=== PATIENT | female | born 1985 | race Caucasian/White ===

== ENCOUNTER 2020-12-25 05:20 | Inpatient (IN) | payer OTHER, SELFPAY ==
[2020-12-25] VITALS (188 sets, daily range): BP systolic 84–137; BP diastolic 37–92; PULSE 25–159; TEMP 36.3–36.6; O2SAT 79–100; BMI 36.4
--- NOTE | 2020-12-25 05:20 | LDADM ---
This patient, Lauren Martinez, was admitted to Labor/Delivery/Recovery 102 on 12/25/20 at 05:20. Plans for labor, pain management and were discussed with patient. Patient/family oriented to hospital policies and general routines including ID bracelet, bed and alarms, visiting hours, pain management, procedures, bathroom and other care routines, personal items, smoking policy, room service/diet and guest tray routines, infant security routines, and visiting hours. Patient/Family are encouraged to report perceived risks to care and to ask questions if they do not understand what they are told or what they should do. See OBIX for further documentation.
--- NOTE | 2020-12-25 05:45 | WPDANESEPP ---
Anes - Eval Pre Procedure Date/Time: 12/25/20 05:45 Pre Op Diagnosis: IOL Patient Data Age: 35 Gender: F Height: Weight: Allergies Allergy/AdvReac Type Severity Reaction Status Date / Time latex Allergy Unknown NOSE Verified 07/07/16 13:31 RUNNING, FACIAL BURNING AND FLUSH Home Medications Medication Instructions Recorded Confirmed Type Vitamin 12/23/20 History buprenorphine-naloxone 12/23/20 History Patient hx anesthesia problems: none Family hx anesthesia problems: none PMFSH Past Medical History Medical History Anemia History of drug abuse Overweight or obesity and not yet delivered Social History Social History Substance use: former Other substance usage details: buprenorphine Last use: 8 years ago Gender identity (if verbalized by the patient): Female Sexual Orientation (if Verbalized by the Patient): Straight or Heterosexual Spiritual care concerns: No Exam Day of Procedure 12/25/20 05:45 Patient weight: overweight Airway: Mallampati scale class II Neurological: alert and oriented
[2020-12-25 06:05] LABS: Basophils Absolute Auto 0.1 K/mm3 (0.0-0.1); Basophils Percent Auto 0.8 % (0.2-1.2); Eosinophils Absolute Auto 0.1 K/mm3 (0-0.3); Hematocrit 33.2 % (37.0-47.0); Hemoglobin 9.7 g/dL (12.0-15.0); Immature Granulocyte Absolute 0.16 K/mm3 (0.00-0.031); Immature Granulocyte Percent A 1.8 % (0-0.5); Lymphocytes Absolute Auto 1.79 K/mm3 (0.9-3.2); Lymphocytes Percent Auto 20.2 % (18.3-44.2); Mean Corpuscular HGB Conc 29.2 g/dl (32-36); Mean Corpuscular Hemoglobin 21.4 pg (26-34); Mean Corpuscular Volume 73.1 fl (80-100); Mean Platelet Volume 10.6 fl (7.4-10.4); Monocytes Percent Auto 10.9 % (2.6-8.5); Neutrophils Absolute Auto 5.8 K/mm3 (1.3-6.7); Neutrophils Percent Auto 65.3 % (45.5-73.1); Platelet Count Result 198 k/mm3 (150-375); Red Blood Count 4.54 M/mm3 (4.2-5.4); Red Cell Distribution Width 21.3 % (11.5-14.5); White Blood Count 8.9 K/mm3 (4.5-10.0)
[2020-12-25 06:41] LABS: Anisocytosis 1+ (NORMAL); Hypochromasia 1+ (NORMAL); Microcytosis 1+ (NORMAL); Platelet Estimate Adequate (Adequate)
[2020-12-25] MEDS: OXYTOCIN 30 UNITS/NS 500 ML 30 UNITS/500 ML BAG IV CONT (06:50)
[2020-12-25] MEDS: LACTATED RINGERS 1,000 ML 125 ML IV CONT (06:50)
--- NOTE | 2020-12-25 07:29 | WPDOBADMIT ---
Obstetrics - Admit Note Admission Note: record reviewed. No pertinent additions to the history and/or any subsequent changes in the physical findings that are not consistent with the expected course of the were found. IOL at 39 weeks, unable to AROM due to pt discomfort SVE 1-2/60/-2, will pplan early epidural Additions to the history and/or subsequent changes in the physical findings follow. None.
[2020-12-25 08:24] LABS: Rapid Plasma Reagin Non-Reactive (NonReactive)
--- NOTE | 2020-12-25 11:57 | PM.OBPNLAB ---
Pain Control Date/time seen: 12/25/20 11:57 SVE 1-2/70/-2, AROM small amount of clear odorless fluid, anticipate vaginal delivery
--- NOTE | 2020-12-25 21:43 | PM.OBPRVD ---
OB - Delivery Note Procedure Delivery date: 12/25/20 Procedure: vaginal delivery Intrapartal events: None Induction method: AROM and per pitocin protocol Delivery monitor: external FHT and external uterine Route of delivery: Laceration Description: Perineal - 1st Degree Delivery repair: vicryl Specimen: Yes Quantitative Blood Loss (ml): 75 Anesthesia type: Epidural Disposition: floor [place] Baby Date of : 12/25/20 Time of : 21:30 Weeks of gestation at delivery: 39 Infant gender: Male Weight (pounds): 8 Weight (ounces): 8 presentation: vertex position: Right Occiput Anterior Placenta delivery description: Spontaneous cord vessel description: 3 Vessels, Clamped/Cut and Delayed Cord Clamping score one minute: 9 score five minutes: 9 Narrative: mother and baby skin to skin in stable condition
[2020-12-25] MEDS: OXYTOCIN 30 UNITS/NS 500 ML 30 UNITS/500 ML BAG 125 UNITS IV CONT (22:05)
[2020-12-25] MEDS: IBUPROFEN 600 MG TABLET PO (22:06)
[2020-12-25] MEDS: WITCH HAZEL 40 PADS 1 PAD TOPICAL (22:06)
[2020-12-25] MEDS: BENZOCAINE 20% AER SPR (*SP) 56 GM CAN 1 SPRAY TOPICAL (22:06)
[2020-12-26] VITALS (12 sets, daily range): BP systolic 96–121; BP diastolic 39–81; PULSE 50–75; RESP 12–18; TEMP 36.3–36.8; O2SAT 97–100
--- NOTE | 2020-12-26 01:34 | OBPPTRN ---
Patient transferred to post room #276 via wheelchair with baby in bassinet. Support person present. Oriented to unit, room, information board, rooming in, admission packet and security measures. Patient verbalizes understanding.
[2020-12-26] MEDS: IBUPROFEN 600 MG TABLET PO ×2 (04:39→11:37)
[2020-12-26 05:21] LABS: Hematocrit 29.3 % (37.0-47.0); Hemoglobin 8.6 g/dL (12.0-15.0)
[2020-12-26] MEDS: POLYSACCHARIDE IRON COMPLEX 150 MG CAPSULE PO ×2 (08:56→15:59)
[2020-12-26] MEDS: DOCUSATE SODIUM 100 MG CAPSULE PO ×2 (08:56→15:59)
--- NOTE | 2020-12-26 10:06 | PM.OBPNVD ---
OB - PN: Subj Subjective Date/time seen: 12/26/20 10:06 Patient comments: no complaints baby status: doing well OB - PN: Obj Data Labs CBC & Chem 7: 12/26/20 04:35 Labs: Laboratory Results - last 24 hr 12/26/20 04:35 Hgb 8.6 L Hct 29.3 L OB - PN A/P Plan day: 1 Plan: routine care Comments: Pt desires discharge. Will await pedi recommendations. Time Spent With Patient Time: Total time spent is greater than 50% in coordination of care (as documented) at patient's floor/unit and/or counseling patient: Time with patient: less than 15 minutes Review of Systems Review of Systems: All systems reviewed & are unremarkable except as noted in HPI and below Exam Narrative: Exam Narrative: Fundus firm and vaginal flow controlled. No lower ext redness, warmth, or edema. Negative homans. Const: General: comfortable Chest: Breast/axilla inspection: normal inspection of the breasts Resp: Effort & Inspection: normal respiratory effort Cardio: Rate: regular rate GI: GI Palp: Yes Soft to palpation Psych: Appearance: grossly normal Affect: normal affect Attitude: cooperative Thought content: Yes Normal thought content present Judgement: Good judgement present (Psych)
--- NOTE | 2020-12-26 13:23 | WPDANLDPN2 ---
Anes-Prog Note L&D Date/Time: 12/26/20 13:23 Comfortable throughout: labor and delivery Neuraxial method: epidural Epidural/Spinal procedure site: clean & non-tender Neuro status: Neuro function grossly intact. Cardiovascular status: normal Respiratory status: normal Airway patency: baseline Mental status: baseline Post-Op hydration status: normal Vital Signs: Last Vital Signs Temp 36.7 C 12/26/20 08:00 Pulse 53 L 12/26/20 08:00 Resp 18 12/26/20 08:00 BP 96/57 L 12/26/20 08:00 Pulse Ox 98 12/26/20 08:00 Pain score (VAS): 0 I/O: Intake & Output 12/25/20 12/26/20 12/26/20 23:59 07:59 15:59 Intake Total 1500 Output Total 25 Balance 1500 -25 Post-procedural complaints: none Patient feedback: Patient satisfied with anesthetic care.
--- NOTE | 2020-12-26 20:10 | PC.NURSE ---
Patient viewed the discharge video Mother & Baby Care, The First Two Weeks online. Patient was given the opportunity and encouraged to ask questions. Patient verbalized understanding of information shared and has been given the mother/baby guide for home reference.
[2020-12-27 07:15] VITALS: BP 97/62; PULSE 50; RESP 16; TEMP 36.9; O2SAT 98
[2020-12-27] MEDS: POLYSACCHARIDE IRON COMPLEX 150 MG CAPSULE PO (07:24)
[2020-12-27] MEDS: DOCUSATE SODIUM 100 MG CAPSULE PO (07:24)
[2020-12-27] MEDS: IBUPROFEN 600 MG TABLET PO (07:24)
--- NOTE | 2020-12-27 09:30 | PM.OBPNVD ---
OB - PN: Subj Subjective Date/time seen: 12/27/20 09:30 Patient comments: no complaints baby status: doing well OB - PN: Obj Data Labs CBC & Chem 7: 12/26/20 04:35 OB - PN A/P Plan day: 2 Plan: routine care and discharge home (F/U in 4 weeks) Time Spent With Patient Time: Total time spent is greater than 50% in coordination of care (as documented) at patient's floor/unit and/or counseling patient: Time with patient: less than 15 minutes Review of Systems Review of Systems: All systems reviewed & are unremarkable except as noted in HPI and below Exam Narrative: Exam Narrative: Fundus firm and vaginal flow controlled. No lower ext redness, warmth, or edema. Negative homans. Const: General: comfortable Chest: Breast/axilla inspection: normal inspection of the breasts Resp: Effort & Inspection: normal respiratory effort Cardio: Rate: regular rate GI: GI Palp: Yes Soft to palpation Psych: Appearance: grossly normal Affect: normal affect Attitude: cooperative Thought content: Yes Normal thought content present Judgement: Good judgement present (Psych)
[2020-12-30 08:55] VITALS: BP 117/67; PULSE 52; RESP 20; TEMP 36.8; O2SAT 100
--- NOTE | 2021-01-18 12:41 | P.DS_ITS ---
DS: Admitting Diagnosis Admitting Diagnosis Admitting Diagnosis: Labor OB - DS: Summary OB Procedures : None OB Procedures Intrapartum: Spontaneous Vag Delivery OB Procedures: : None Time Spent with Patient Time attestation: Total time spent providing and/or coordinating discharge services: DS: Data Data Completed and Pending Completed studies during hospitalization: Pending at discharge 12/25/20 21:33 Surgical [PTH] Routine Discharge Plan Discharge Attending physician on discharge: Irish Morales Consulting providers: Irish Morales ; Joellen Thompson Discharging Clinician: Joellen Thompson Patient Disposition: Home, Self-Care Activity: pelvic rest Diet: as tolerated Discharge Instructions: Education: Mom and Baby Guide Given to: Mother Follow-Up: Call your delivering provider's office for an appointment to be seen in: Call for appointment Mom and baby should come to the [facility] for the follow-up appointment. Appointment Date/Time: December 30, 2020 at 9:00 am What to expect at your follow-up visit: Physical Assessment Call [phone] if you are unable to keep your appointment time. BREAST CARE: * Wear a snug supportive bra. * For engorgement discomfort: Bottle Feeding: * May apply ice packs EPISIOTOMY/PERINEAL CARE: * Until bleeding stops, use your trinh bottle after urinating * Change your pad frequently throughout the day * You may take sitz baths several times a day (fill your bathtub with warm water and soak for 20 minutes.) Do NOT bathe in the water * No tub baths until seen by your physician - You may shower ACTIVITY: * Rest as much as possible. * Do not exercise or lift anything heavier than your baby (such as laundry or other children.) * Avoid stairs or driving as much as possible. * Do not put anything into the vagina. No douching, tampons, or sexual activity until seen by physician. NOTIFY PHYSICIAN IF YOU HAVE ANY QUESTIONS OR IF ANY OF THE FOLLOWING SYMPTOMS OCCUR: * If your episiotomy or incision becomes red, swollen, or more painful than what you have experienced in the hospital. * If your vaginal bleeding becomes foul smelling. * If your vaginal bleeding becomes more heavy than a period or if your bleeding changes from pink to bright red. However, you may pass an occasional walnut- sized clot once or twice for the first week . * If you experience a sharp, shooting pain in you calves. * If you discover a hard, reddened area on your breast or if you experience flu- like symptoms. DIET: * Eat regular, well-balanced meals. * Drink plenty of fluids daily. If , drink to thirst. Stand Alone Forms: General Discharge Information Follow-up/Referrals: Irish Morales CNM [Certified Nurse Underwear Finisher] - Discharge Medications: New ibuprofen 600 mg Tablet 600 mg PO Q6H PRN (Reason: Cramping) Qty: 20 RF: 0 Continued Vitamin 200 mg BYMOUTH DAILY RF: 0 buprenorphine-naloxone 2 mg BYMOUTH DAILY RF: 0 Date of admission: 12/25/20 05:20 Primary Care Provider: PHYSICIAN,MANAGER OF DISTRIBUTION Admitting Provider: Eveline Stokes Attending physician on admission: Eveline Stokes Condition: Stable
== END 2020-12-27 12:10 | disposition home or self-care (01) | DRG 560 ==
LOC: ANHLDR 05:32 → ANHOB2 12-26 01:52
PROVIDERS: Advanced Practice Midwife; Admitting Provider Obstetrics & Gynecology; Visit Provider Obstetrics & Gynecology
DX: O99.02 Anemia complicating childbirth (principal); Z37.0 Single live birth; Z3A.39 39 weeks gestation of pregnancy; D64.9 Anemia, unspecified; O70.0 First degree perineal laceration during delivery; O99.214 Obesity complicating childbirth; E66.9 Obesity, unspecified
CPT/HCPCS: 36415; 85014; 85018; 85025; 86592; 86850; 86900; 86901; 88307; A9270; J2590; J2795; J7120

== ENCOUNTER 2022-01-26 01:42 | Day surgery (SDC) | payer OTHER, SELFPAY ==
--- NOTE | 2022-01-24 10:49 | PC.NURSE ---
Report to the Outpatient Waiting Room, entrance under the green pavilion located off [facility], at time 1000 on date 01/26/22. OR Time: 1200. - You and your visitor will be asked a series of questions to screen for COVID 19 for your protection. - Only one visitor is allowed at this time. - The patient visitor is requested to leave or wait in car when not with patient. - A mask is required within the hospital. Patients may have clear liquids (water, carbonated beverages, clear teas, apple juice) until 3 hours prior to surgery with a maximum of 20 ounces. - No food from midnight until time of surgery Take the following medications with a SIP of water the morning of surgery: NONE Medications to discontinue per physician: N/A Date to take last dose: N/A Please no make-up, nail swedish, hairspray, perfume, deodorant, or body powder the day of surgery. No jewelry (including any body piercings) or valuables the day of surgery, leave them at home. Please take a shower or bath the night before, or the morning of, surgery with an antibacterial soap. Wear comfortable, loose fitting clothing. - Jewelry must be removed prior to entering the operating room. Rings and piercings that are not removed may be cut off. - The hospital will not accept responsibility for valuables. - Please leave all valuables, including medications, at home the day of surgery. If you are going home after surgery, a licensed driver medic must drive you home. - NO public transportation without another adult. - We recommend that an adult stay with you for 24 hours following discharge. - We also recommend that you do not drive, make important decision, drink alcoholic beverages, or take any drugs that were not prescribed by your health care provider for at least 24 hours after your discharge time. Follow any additional instructions given to you from your surgeon. If you or anyone in your household have experienced Covid symptoms in the past week, please notify your surgeon or the nurse liaison at the phone number below for possible testing. Telephone instructions given to PT - TRINA GLASGOW and asked if any additional questions and then verbalized understanding. Patient advised to call surgeon office or pre surgery nurse liaison [phone] if any additional questions.
--- NOTE | 2022-01-25 15:05 | WPDANESEPPF ---
Anes - Initial Pre Proc Eval Procedure: Operation Date: 01/26/22 12:00 Proposed Procedures p Suction Dilation and Curettage - Eveline Stokes MD Date/Time: 01/25/22 15:05 Surgeon: Eveline Stokes MD Pre Op Diagnosis: missed Ab Patient Data Age: 36 Gender: F Height: 1.63 m Weight: Allergies Allergy/AdvReac Type Severity Reaction Status Date / Time latex Allergy Intermediate NOSE Verified 01/26/22 10:51 RUNNING, FACIAL BURNING AND FLUSH Home Medications Medication Instructions Recorded Confirmed Type ibuprofen 600 mg tablet 600 mg PO Q6H PRN Cramping #20 tabs 12/26/20 01/26/22 Rx buprenorphine 2 mg-naloxone 0.5 mg 1 tablet sublingual TID 01/24/22 01/26/22 History sublingual tablet Patient hx anesthesia problems: none Family hx anesthesia problems: none Results Review: All pre-operative results and documents have been reviewed as part of the pre-operative evaluation. [facility] Past Medical History Medical History (Updated 01/25/22 @ 15:05 by Roberto Hardy MD) Anemia Chronic narcotic use History of drug abuse Overweight or obesity and not yet delivered Social History Social History Smoking packs per day: 1 Smoking cigarettes per day: 20.0 Years smoked: 12 Smoking pack-years: 12.00 Smoking status: Former smoker Tobacco type: cigarettes and e-cigarettes/vaping Smoking end date: 07/10/15 Additional smoking assessment comments: CURRENTLY VAPING Alcohol intake: never Substance use: former Substance use type: prescription drug Other substance usage details: TREATMENT PROGRAM SINCE 2012 Last use: 8 years ago Living arrangements: with family Gender identity (if verbalized by the patient): Female Sexual Orientation (if Verbalized by the Patient): Straight or Heterosexual Spiritual care concerns: No Anes - Eval Final PreProcedure Day of Procedure 01/25/22 15:05 Patient weight: normal Heart: regular rate and rhythm Lungs: clear to auscultation and normal air movement Airway: Mallampati scale class II Neurological: alert and oriented Last oral intake: >/= 8 hours ASA classification: III Emergent: no Anesthetic plan: proceed Anesthesia type and monitoring: general GIVS Results Review: All pre-operative results and documents have been reviewed as part of the pre-operative evaluation. Informed Consent: The patient's anesthetic plan and its attendant risks and benefits were discussed with the patient/family/POA. Questions were solicited and answers provided to the satisfaction of the patient/family/POA.
[2022-01-26] VITALS (7 sets, daily range): BP systolic 106–119; BP diastolic 66–76; PULSE 49–71; RESP 15–16; TEMP 37.3; O2SAT 100
[2022-01-26] MEDS: ACETAMINOPHEN 500 MG TABLET 1000 MG PO (10:55)
--- NOTE | 2022-01-26 11:03 | PM.IMHP ---
H&P: HPI History of Present Illness Date/Time: 01/26/22 11:03 Chief Complaint: Missed miscarriage Narrative: this patient is a 36-year-old female with a missed miscarriage. Agreed to perform suction D&C. She understands the risks, benefits, and alternatives. She stands injuries may occur during the surgery the result in hospitalization, more surgery, severe illness. She understands there is risk of hemorrhage and infection. Review of Systems Review of Systems: All systems reviewed & are unremarkable except as noted in HPI and below Constitutional: Constitutional: Denies chills, Denies fatigue, Denies fever(s) and Denies weakness Eyes: Eyes: Denies blurry vision, Denies change in vision, Denies loss of peripheral vision, Denies loss of vision, Denies other visual disturbances and Denies eye pain ENT: Denies vertigo, Denies dizziness, Denies hearing loss, Denies mouth pain, Denies nasal obstruction, Denies neck mass and Denies neck pain Cardiovascular: Cardiovascular: Denies chest pain, Denies diaphoresis, Denies syncope, Denies leg edema and Denies dyspnea Respiratory: Respiratory: Denies chest congestion, Denies cough, Denies hemoptysis, Denies dyspnea and Denies wheezing Gastrointestinal: Gastrointestinal: Denies abdominal pain, Denies constipation, Denies diarrhea, Denies nausea and Denies vomiting Genitourinary: Genitourinary: Denies hematuria, Denies change in libido, Denies nocturia, Denies genital lesions, Denies flank pain and Denies urinary urgency Musculoskeletal: Musculoskeletal: Denies abnormal gait, Denies back pain, Denies myalgias, Denies arthralgias, Denies joint swelling, Denies muscle weakness and Denies neck pain Integumentary/Breasts: Skin/Breast: Denies swelling, Denies breast pain, Denies breast mass, Denies dry skin, Denies nipple discharge, Denies unusual bruising and Denies jaundice Neurologic: Denies Neuro-related abnormal movements, Denies Abnormal speech present, Denies abnormal gait, Denies behavioral changes, Denies confusion, Denies vertigo, Denies dizziness, Denies syncope, Denies loss of vision, Denies memory loss, Denies convulsions and Denies weakness Psychiatric: Psychiatric: Denies abnormal sleep pattern, Denies behavioral changes, Denies change in libido, Denies confusion, Denies depression, Denies anhedonia and Denies memory loss Endocrine: Endocrine: Reports no additional endocrine complaints, Denies change in libido and Denies fatigue Hematologic/Lymphatic: Hematologic/Lymphatic: Reports no additional hematologic/lymphatic complaints Allergic/Immunologic: Allergic/Immunologic: Reports no additional allergic/immunologic complaints and Denies wheezing PMFSH Past Medical History Medical History (Updated 01/26/22 @ 11:05 by Eveline Stokes MD) Anemia Chronic narcotic use History of drug abuse Overweight or obesity and not yet delivered Social History Social History Smoking packs per day: 1 Smoking cigarettes per day: 20.0 Years smoked: 12 Smoking pack-years: 12.00 Smoking status: Former smoker Tobacco type: cigarettes and e-cigarettes/vaping Smoking end date: 07/10/15 Additional smoking assessment comments: CURRENTLY VAPING Alcohol intake: never Substance use: former Substance use type: prescription drug Other substance usage details: TREATMENT PROGRAM SINCE 2012 Last use: 8 years ago Living arrangements: with family Gender identity (if verbalized by the patient): Female Sexual Orientation (if Verbalized by the Patient): Straight or Heterosexual Spiritual care concerns: No Meds Home Medications and Allergies Home Medications Medication Instructions Recorded Confirmed Type ibuprofen 600 mg tablet 600 mg PO Q6H PRN Cramping #20 tabs 12/26/20 01/26/22 Rx buprenorphine 2 mg-naloxone 0.5 mg 1 tablet sublingual TID 01/24/22 01/26/22 History sublingual tablet Allergies Al
--- NOTE | 2022-01-26 11:06 | WPDHPUPDATE1 ---
History and Physical Update Update Date/Time: 01/26/22 11:06 History and Physical has been reviewed, including an updated exam of the patient. There are NO changes in the patient's condition. Risks, benefits, and alternatives have been discussed and questions answered. Patient agrees to proceed with procedure.
[2022-01-26] MEDS: LACTATED RINGERS 1,000 ML 30 ML IV CONT (11:10)
--- NOTE | 2022-01-26 11:37 | SUR.PREOP ---
BECAUSE WE CARE BOOKLET GIVEN TO PT WITH INFORMATIONAL MATERIALS
--- NOTE | 2022-01-26 13:01 | P.OP_ITS ---
Procedure Note - Detailed Date of Procedure 01/26/22 Pre-op Diagnosis missed Ab Post-op Diagnosis Same Procedure Performed Suction D&C Surgeon Eveline Stokes MD Anesthesia MAC Indications missed Findings normal-appearing vulva vagina and cervix to. Moderate amount of products conception within the uterus. 8 cm uterus Description of Procedure the patient was taken the operating room. She was prepped and draped in dorsal lithotomy position after induction of mac anesthesia. A speculum was placed in the vagina. Cervix grasped with tenaculum. The cervix was dilated to about 1 cm Using [place] dilators. A 12. Australian curved curette was used to perform suction D&C. The curette was introduced and vacuum was applied. The curette was removed over all surfaces of the intrauterine cavity multiple times. This was done until all the surfaces were clear and had the familiar grainy texture they can be felt through the instrument. A sharp curette was then used to curettage all the surfaces. The suction cup was then reapplied 1 more time to remove any debris. The instruments were removed. The speculum and tenaculum were removed. The patient tolerated the procedure well. She was taken recovery room stable condition. Estimated Blood Loss 50 Drains No Packing No Pathology Yes Complications No immediate complications Condition Stable Disposition PACU
[2022-01-26] MEDS: KETOROLAC 30 MG/ML VIAL (*BKC) IV PUSH (13:37)
[2022-01-26] MEDS: ESTROGENS, CONJUGATED 25 MG/5 ML VIAL IV PUSH (14:47)
--- NOTE | 2022-01-26 15:35 | SUR.PHASEII ---
1418- Call to Dr. Stokes patient getting ready for discharge home and having heavy vaginal drainage with clots noted. Patient asymptomatic with stable vital signs. Received orders to give 25MG Estrogen IVP and to assess patient's vaginal drainage and she can be discharged home once vaginal bleeding slows. 1445- Patient very anxious about vaginal bleeding. Per patient she is angry with the results of her suction D&C. Patient tearful and stated she was unhappy with the results of procedure with the heavy bleeding and not wanting dose of Estrogen. Patient stated she would like to leave hospital and go home without dose being given. Educated patient this treatment necessary to assist with slowing vaginal bleeding. Patient agreeable to receive dose after education- Estrogen 25MG given via IV at 1447, see MAR. 1515- Patient ambulated to restroom with assistance of this RN. Vaginal bleeding subsiding to small amount in trinh pad. 1535- Reviewed discharge instructions with patient and ensured she understood parameters for calling Dr. Stokes or visiting ED for vaginal drainage. Patient remains anxious and tearful in regards to procedure. Lauren stated she understands discharge instructions and all questions/concerns answered at this time.
== END 2022-01-26 15:43 | disposition home or self-care (01) ==
PROVIDERS: Visit Provider Obstetrics & Gynecology
PROC: (CPT 59820; principal; 2022-01-26 12:00)
DX: O02.1 Missed abortion (principal); F17.290 Nicotine dependence, other tobacco product, uncomplicated
CPT/HCPCS: 59820; 88305; A9270; J1410; J1885; J2250; J2405; J2704; J3010; J7120